=== PATIENT | female | born 1980 | race Two or more races ===

== ENCOUNTER 2024-01-29 06:55 | Day surgery (SDC) | payer OTHER, MEDICAID, SELFPAY ==
--- NOTE | 2024-01-24 10:21 | EKG_ITS ---
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
[2024-01-24 10:27] VITALS: BMI 33.1
[2024-01-24 10:55] LABS: Collection Type, Urine Clean Catch
[2024-01-24 11:59] LABS: Basophils # (Auto) 0.1 Thou/mm3 (0.0-0.2); Basophils % (Auto) 1 % (0-2.5); Eosinophils # (Auto) 0.2 Thou/mm3 (0.0-0.5); Eosinophils % (Auto) 3 % (0-10); Hematocrit 43.2 % (36.0-46.0); Hemoglobin 14.3 g/dL (12.0-16.0); Immature Granulocytes % (Auto) 0 % (0-0); Immature Granulocytes Auto 0.02 Thou/mm3 (0.00-0.00); Lymphocytes % (Auto) 34 % (10-50); Mean Corpuscular HGB Conc 33.1 g/dl (31.0-37.0); Mean Corpuscular Hemoglobin 31.4 pg (25.0-35.0); Mean Corpuscular Volume 95 fL (80-100); Monocytes # (Auto) 0.5 Thou/mm3 (0.0-0.8); Monocytes % (Auto) 5 % (0-12); Neutrophils # (Auto) 5.2 Thou/mm3 (1.8-7.7); Neutrophils % (Auto) 57 % (37-80); Nucleated Red Blood Cell % 0 /100 WBC (0); Platelet Count 247 Thou/mm3 (140-440); Red Blood Count 4.55 Miln/mm3 (4.00-5.20)
[2024-01-24 12:03] LABS: Bacteria,Urine Rare; Bilirubin,Urine Negative (Negative); Blood,Urine Negative (Negative); Clarity,Urine Clear (Clear/Hazy); Color,Urine Lt-Yellow (Lt Yel-Yel); Glucose, Urine Negative (Negative); Ketones,Urine Negative (Negative); Leukocyte Esterase,Urine Negative (Negative); Nitrite,Urine Negative (Negative); Protein,Urine Trace (Neg - Trace); RBC,Urine 2 /hpf (0-3); Specific Gravity,Urine 1.021 (1.001-1.035); Squamous Epithelial Cell,Urine 2 /hpf (0-5); Urobilinogen,Urine Negative mg/dL (0.0-1.0); WBC,Urine < 1 /hpf (0-5)
[2024-01-24 12:09] LABS: Alanine Aminotransferase 28 U/L (10-49); Albumin, Serum 4.8 gm/dL (3.5-5.0); Albumin/Globulin Ratio 1.5 (1.2-2.2); Alkaline Phosphatase 75 U/L (46-116); Anion Gap 7 (7-16); Aspartate Amino Transferase 18 U/L (0-34); BUN/Creatinine Ratio 20 Ratio (12-20); Bilirubin,Total 0.4 mg/dL (0.3-1.2); Blood Urea Nitrogen 14 mg/dL (9-23); Calcium 9.9 mg/dL (8.3-10.6); Calcium (Corrected) 9.9 mg/dL (8.5-10.1); Carbon Dioxide 30.4 mMol/L (20.0-31.0); Chloride 101 mMol/L (98-107); Creatinine (Component) 0.7 mg/dL (0.6-1.3); Estimated Creatinine Clearance 105.8 mL/min (>60); Globulin 3.1 gm/dL (2.3-3.5); Glucose 90 mg/dL (74-106); Osmolality,Calculated 276 (275-295); Partial Thromboplastin Time 29.8 Seconds (22.0-36.0); Potassium 3.7 mMol/L (3.4-5.1); Prothrombin Time 11.4 Seconds (9.0-12.2); Sodium 138 mMol/L (136-145); Total Protein 7.9 gm/dL (5.7-8.2); eGFR > 60 See Note
--- NOTE | 2024-01-28 09:20 | PD.SURHP ---
HPI Date of Admission January 29, 2024 Chief Complaint Chief Complaint: Refractory gastroesophageal reflux and hiatal hernia on BX. GERD PPI medications HPI This 43-year-old female has had gastroesophageal reflux for over 15 years. She has been taking PPI medications that have not been helping she has to sleep upright with multiple pillows she is waking up with acid in her mouth and a liquid in her mouth with coughing and this is a relatively frequent occurrence on daily basis. She was evaluated and selected for antireflux surgery. She will undergo laparoscopic hiatal hernia repair with implantation of a patch and 360 degree Misty fundoplication. Please obtain risk includes the bleeding possible explore laparotomy. Past Medical History Past Medical History NEUROLOGIC: Negative Neurological Disorders CARDIAC: Negative Cardiac Disorders or Congestive Heart Failure RESPIRATORY: Positive Respiratory Disorders and Asthma; Negative Chronic Obstructive Pulmonary Disease (COPD) GASTROINTESTINAL: Positive Gastrointestinal Disorders, Hiatal Hernia and Gastroesophageal Reflux Disease GENITOURINARY: Negative Genitourinary Disorders or Renal Disease REPRODUCTIVE: Positive Previous Pregnancies MUSCULOSKELETAL: Negative Musculoskeletal Disorders ENT: Negative History of ENT Problems ENDOCRINE: Negative Endocrine Disorders, Diabetes Mellitus Type 1 or Diabetes Mellitus Type 2 HEMATOLOGIC: Negative Blood Disorders PSYCHO/SOCIAL: Positive Depression and Anxiety OTHER HISTORY: Positive Hospitalization (surgery); Negative Autoimmune Disease, Shingles, Blood Transfusions, Anesthesia Reactions or Cancer Family History FAMILY HISTORY: Positive Family Respiratory Disorders and Family Cancer; Negative Family Psychiatric Problems, Family Cardiac Disorders, Family Gastrointestinal Problems, Family Genitourinary Problems, Family Endocrine Disorders, Family Reproductive Disorders, Family Musculoskeletal Disorders, Family Surgery or Family Anesthesia Reaction Surgical History SURGICAL: Positive Ear Surgery, Hysterectomy and Tubal Ligation Social History SMOKING STATUS: Never smoker Travel History EBOLA RISK: No Meds Home Medications and Allergies Home Medications ?Medication ?Instructions ?Recorded ?Confirmed ?Type azelastine 0.05 % eye drops 1 drp ophthalmic (eye) BID 01/24/24 01/24/24 History cetirizine 10 mg tablet (Zyrtec) 10 mg PO QDAY 01/24/24 01/24/24 History escitalopram oxalate 20 mg tablet 20 mg PO QDAY 01/24/24 01/24/24 History fluticasone fur. 100 mcg-umeclid 1 ea inhalation DAILY 01/24/24 01/24/24 History 62.5 mcg-vilant 25 mcg inhalat.powder (Trelegy Ellipta) fluticasone propionate 50 1 spray intranasal QDAY 01/24/24 01/24/24 History mcg/actuation nasal spray,suspension gabapentin 400 mg capsule 400 mg PO TID 01/24/24 01/24/24 History montelukast 10 mg tablet 10 mg PO QDAY 01/24/24 01/24/24 History ofloxacin 0.3 % eye drops 1 drp ophthalmic (eye) QID 01/24/24 01/24/24 History semaglutide (weight loss) 2.4 2.4 mg subcut QWEEK 01/24/24 01/24/24 History mg/0.75 mL subcutaneous pen injector (Wegovy) zolpidem 12.5 mg tablet,extended 12.5 mg PO HS 01/24/24 01/24/24 History release,multiphase Allergies Allergy/AdvReac Type Severity Reaction Status Date / Time No Known Allergies Allergy Verified 01/24/24 10:26 Exam Constitutional Constitutional: no acute distress Routine HEENT Exam Head: Present normocephalic Eye: Present EOMI and PERRL ENT: Present mucous membranes moist Routine Neck Exam Neck: Present supple and trachea midline Routine Chest/Breast/Axilla Exam Chest wall: Absent tenderness or mass Routine Respiratory Exam Respiratory: Present chest non-tender, lungs clear, normal breath sounds and no resp distress; Absent respiratory distress Routine Cardiovascular Exam Cardiovascular: Present RRR Routine Abdominal Exam Abdominal: Present soft and normoactive bowel sounds Routine Extremities Exam Extremities: Present full ROM Routine Skin Exam Skin: Present intact, dry and warm Routine Neurological Exam Neurological: Present alert, oriented X3 and CN II-XII intact Routine Psychiatric Exam Psychiatric: Present normal affect and normal thought process Results Results: Laboratory Laboratory results: results reviewed Assessment & Plan Problem List (1) Hiatal hernia with GERD and esophagitis: Status: Acute (2) GERD with esophagitis: Status: Acute Plan Laparoscopic hiatal hernia repair with implantation of a patch and. 60 degree Misty fundoplication. Risk benefits and alternatives were discussed with the patient informed consent is obtained. The risks include risk of bleeding and laparotomy. Quality Measures Quality Measures VTE prophylaxis
[2024-01-29] VITALS (17 sets, daily range): BP systolic 107–129; BP diastolic 72–91; PULSE 72–106; RESP 12–98; TEMP 36.2–36.8; O2SAT 95–100; BMI 32.8; BMI 34.9
[2024-01-29] MEDS: ALBUTEROL RT 2.5 MG/3 ML NEBU INH (11:49)
[2024-01-29] MEDS: RINGERS LACTATED 1000 ML 1,000 ML 60 ML IV (11:52)
--- NOTE | 2024-01-29 14:36 | ESOP_ITS ---
Date of Procedure 01/29/24 Pre Op Diagnosis Refractory gastroesophageal reflux not responding to PPI medications. Patient wants antireflux surgery Post Op Diagnosis Same. Procedure Laparoscopic hiatal hernia repair with implantation of phasic ST patch and 360 degree Misty fundoplication on January 29, 2024 Findings This patient has a history of abdominoplasty. Large hiatal hernia was found measuring about 5 cm in length. Esophagus and the stomach cardia and fundus resided in the posterior mediastinum. Procedure Description Patient was interviewed in the preop holding area and the procedure was discussed in detail. Risk benefits and alternatives were also discussed and informed consent is obtained. The patient was then brought to the operating room by the nursing staff. The patient was positioned in supine position on the operating table. Gen. anesthesia was administered in a satisfactory manner. The patient was positi oned in the modified lithotomy position in the [facility]. Patient was given prophylactic IV antibiotics half an hour before the procedure started. The Flowtron's are applied to both legs is anti-embolism mechanism. The chest abdomen and genitalia and the legs are prepped and draped in usual manner. An open laparoscopic procedure is carried out and balloon cannula is inserted through the supraumbilical incision. The balloon cannula was inserted. After that the pneumoperitoneum is achieved. The patient is positioned in the reverse Trendelenburg position. The 30? scope is used. Under direct vision a 5 mm cannula is inserted in the subxiphoid location, 10 mm cannula is inserted in the left midclavicular location, a 10 mm cannula is inserted in the left anterior axillary line and a 5 mm cannula is inserted in the right midclavicular line. A medium Genie retractor is used through the subxiphoid incision to retract the left lobe of the liver to the right side. The harmonic ultrasonic sly are used to divide the gastrohepatic omentum. The dissection is carried out towards the diaphragmatic hiatus and the esophago- phrenic gastrophrenic and gastrosplenic ligaments are divided with the harmonic ultrasonic sly. A retroesophageal window is created protecting the posterior vagus nerve and an umbilical tape is passed around the esophagus to be used as a retractor. Further dissection is carried out in the posterior mediastinum and the esophagus is further freed from the mediastinal structures and the esophagus is pulled down into the abdomen. The greater curvature of the stomach is examined and the short gastric vessels on the greater curvature were divided with harmonic ultrasonic sly. The gastrosplenic ligaments are divided in a similar manner and the gastropancreatic ligaments are divided. After the greater curvature and the fundus is freed completely the examination is carried out in the retroesophageal space and small ligaments are divided. The hemostasis is already achieved. The hiatal hernia defect is examined carefully and it is repaired by intra and extracorporeal technique with a 3-0 Ethibond interrupted sutures. The diaphragmatic repair is carried out posterior to the esophagus. Enough space his left around the esophagus to avoid obstruction. At this point phasic's ST bioabsorbable patch was used and tailored in place and placed in an onlay manner over the diaphragmatic repair and sutured in place. Multiple sutures were taken on both the side of the esophagus between the diaphragm and the patch and also patch was sutured over the diaphragmatic repair. Now the Misty 360? fundoplication is carried out. The orogastric tube is removed and a 56 Cymraes Puentes dilator is inserted into the esophagus and stomach by the anesthesiologist. This is used as an internal stent for calibration of the lumen. Now the freed fundus is brought around the esophagus from the left side behind the esophagus to the front on the right side and it is sutured to the left side of the fundus by intracorporeal and extracorporeal techniques using a 3-0 Ethibond interrupted sutures. There are 3 sutures placed to complete the fundoplication. The sutures passed through right and left side of the fundus as well as anterior wall of the esophagus. The Puentes dilator is removed. Multiple Lembert stitchs are taken between the right and left side of the fundus to the esophagus. The operative field is thoroughly irrigated with saline solution and the hemostasis is achieved. The umbilical tape is divided and it is removed. The Interceed an anti-adhesion barrier is placed between the liver and the stomach. The Genie retractor is removed under direct vision. All the cannulas are removed under laparoscopic vision and there is no bleeding from the cannula site incisions. The balloon cannula is removed and the pneumoperitoneum is allowed to escape. The midline incision is closed in layers. The fascia is approximated by 2-0 Vicryl continuous sutures. The subcutaneous tissue is approximated by 3-0 chromic suture and the skin is approximated by 4-0 nylon interrupted sutures. The trocar site incisions are closed with the 3-0 chromic and a 4-0 nylon stitches. Sterile dressings are applied. The patient tolerated the procedure very well and is transferred to the recovery room in satisfactory condition. Anesthesia GETA Drains None. Implants Phasic ST patch over the diaphragm Pathology / specimen None Estimated Blood Loss 10 Condition Stable Disposition PACU Surgeon Mahamed Santizo MD Surgical Staff Operation Date: 01/29/24 10:45 Case Staff Anesthesiologist: Josh Benoit RN First Assistant: Clara Morris RN director of digital technology Joanne surgical instrument repair specialist
--- NOTE | 2024-01-29 14:45 | SUR.PHASEI ---
pt received from OR in recovery bay 4. pt asleep but responds to voice, breathing unlabored on oxymask 8l, v/s stable. pt dressing to abd x5 cdi. report received from Dr. Benoit and David MÉNDEZ.
[2024-01-29] MEDS: fentaNYL CIT INJ 50 mCg/ML AMP 2ML 25 MCG IV (14:55)
--- NOTE | 2024-01-29 15:41 | SUR.PHASEII ---
pt able to tolerate oral fluids without difficulty swallowing or nausea/vomiting.
--- NOTE | 2024-01-29 16:45 | SUR.PHASEII ---
pt awake and alert, breathing unlabored on room air. v/s stable. pt dressing to abd x5 cdi. report called to Elena MÉNDEZ. pt will be transferred to room at this time.
[2024-01-29] MEDS: KETOROLAC INJ 30 MG/ML VIAL IVP ×2 (17:50→23:43)
[2024-01-29] MEDS: ACETAMINOPHEN IVPB 1,000 MG/100 ML VIAL 250 MG IV ×2 (17:51→23:44)
[2024-01-29] MEDS: FLUTICASONE UMECLIDIN VILANTER 1 EA INH (19:00)
[2024-01-29] MEDS: MONTELUKAST SODIUM 10 MG TABLET PO (20:12)
[2024-01-29] MEDS: lorataDINE 10 MG TABLET PO (20:12)
[2024-01-30] VITALS: BP 121/88; PULSE 83; RESP 18; TEMP 36.8; O2SAT 95
[2024-01-30 04:00] VITALS: BP 106/70; PULSE 75; RESP 17; TEMP 36.7; O2SAT 97
[2024-01-30] MEDS: KETOROLAC INJ 30 MG/ML VIAL IVP (06:01)
[2024-01-30] MEDS: ACETAMINOPHEN IVPB 1,000 MG/100 ML VIAL 250 MG IV (06:02)
[2024-01-30 07:55] VITALS: BP 124/86; PULSE 96; RESP 18; TEMP 36.2; O2SAT 99
[2024-01-30] MEDS: lorataDINE 10 MG TABLET PO (09:44)
[2024-01-30] MEDS: GABAPENTIN 100 MG, GABAPENTIN 300 MG 400 MG PO (09:44)
[2024-01-30] MEDS: ESCITALOPRAM OXALATE 10 MG TABLET 20 MG PO (09:44)
[2024-01-30 12:00] VITALS: BP 111/70; PULSE 76; RESP 19; TEMP 36.2; O2SAT 97
--- NOTE | 2024-01-30 12:09 | ESPR_ITS ---
Documentation for date of: 01/30/24 Subjective Subjective Brief History: This 43-year-old female has had gastroesophageal reflux for over 15 years. She has been taking PPI medications that have not been helping she has to sleep upright with multiple pillows she is waking up with acid in her mouth and a liquid in her mouth with coughing and this is a relatively frequent occurrence on daily basis. She was evaluated and selected for antireflux surger y. She will undergo laparoscopic hiatal hernia repair with implantation of a patch and 360 degree Misty fundoplication. Please obtain risk includes the bleeding possible explore laparotomy. January 30, 2024 postop day 1: Brooke has been requesting not to give her pain medication and she is doing well. She is up and about ambulating and has been walking in the hallways. She tolerated the full liquid diet without any difficulty and the urinary catheter was removed and she is passing urine. She has no complaints he wants to go home. She can tell she is not getting any reflux at this time. There is no complaint of shortness of breath and no recurrence of the asthma attack.. Exam Vital Signs Temp Pulse Resp BP Pulse Ox O2 Del Method O2 Flow Rate 97.1 F 96 18 124/86 H 99 Room Air 3 01/30/24 07:55 01/30/24 07:55 01/30/24 07:55 01/30/24 07:55 01/30/24 07:55 01/30/24 07:55 01/29/24 20:00 Narrative Exam Abdomen is soft and nontender incisional tenderness is present there is no drainage there is no infection extremities are unremarkable. Cardiopulmonary examination is normal. Assessment & Plan Diagnosis (1) Hiatal hernia with GERD and esophagitis: Status: Acute (2) GERD with esophagitis: Status: Acute (3) Status post laparoscopic fundoplication: Status: Acute Plan Discharge patient home on oral pain medication and liquid diet for a period of 10 days. Follow-up in 10 days Procedures Procedure Date 01/29/24 Procedures Laparoscopic hiatal hernia repair with implantation of phasic ST patch and 360 degree Misty fundoplication on January 29, 2024 (2) GERD with esophagitis Qualifiers: Esophagitis bleeding: without hemorrhage Qualified Code(s): K21.00 - Gastro- esophageal reflux disease with esophagitis, without bleeding
--- NOTE | 2024-01-30 12:31 | PD.SURDS ---
Planned Discharge Date 01/30/24 DS: Providers Provider Date of admission: 01/29/2024 Primary care physician: Hayden Reddy MD Attending Provider on Admission: Mahamed Santizo MD Attending Provider on DC: Mahamed Santizo MD Discharging Provider: Mahamed Santizo MD Diagnosis Discharge Diagnosis (1) Status post laparoscopic fundoplication: Status: Acute (2) Hiatal hernia with GERD and esophagitis: Status: Acute (3) GERD with esophagitis: Status: Acute (4) Post-op pain: Status: Acute Problem List Completed Was Problem List Reviewed/Reconciled?: Yes Hospital Course This patient was brought to OR for laparoscopic hiatal hernia repair and Misty fundoplication. This was done on 01/29/24. Postoperatively she needed IV narcotics for pain management. The judd catheter was removed and she was able to void. She got out of bed and ambulated in hallways on POD 1. She was started on clear liquid diet and advanced to full liquid diet. She tolerated that well. Her pain is managed with oral pain meds. She is discharged on liquid diet for 10 days and follow up in office in 10 days. Condition markedly improved. Status at Discharge Functional status at discharge: independent ambulation Exam Vital Signs Temp Pulse Resp BP Pulse Ox O2 Del Method O2 Flow Rate 97.2 F 76 19 111/70 97 Nasal Cannula 3 01/30/24 12:00 01/30/24 12:00 01/30/24 12:00 01/30/24 12:00 01/30/24 12:00 01/30/24 12:00 01/29/24 20:00 Narrative Exam Abdomen is soft and nontender and incisions are as expected. No cardio pulmonary issues and there is no leg tenderness. Discharge Plan Plan Patient Disposition: HOME (Self Care) Disposition Comment: Follow-up in the office in 10 days Prescriptions/Referrals Prescriptions/Med Rec: New hydrocodone-acetaminophen 10-325 mg tablet 1 tab PO Q6H MDD 4 PRN (Reason: pain) Qty: 28 0RF Continued azelastine 0.05 % Drops 1 drp OPHTHALMIC (EYE) BID cetirizine [Zyrtec] 10 mg Tablet 10 mg PO QDAY ofloxacin 0.3 % Drops 1 drp OPHTHALMIC (EYE) QID gabapentin 400 mg Capsule 400 mg PO TID montelukast 10 mg Tablet 10 mg PO QDAY fluticasone propionate 50 mcg/actuation [place],Suspension 1 spray INTRANASAL QDAY Rx Instructions: administer into each nostril escitalopram oxalate 20 mg Tablet 20 mg PO QDAY zolpidem 12.5 mg Tablet,Ext Release Multiphase 12.5 mg PO HS Trelegy Ellipta 100-62.5-25 mcg blister with device 1 ea INHALATION DAILY Wegovy 2.4 mg/0.75 mL pen injector 2.4 mg SUBCUT QWEEK Patient Comments: INJECT 2.4MG BY SUBCUTANEOUS ROUTE EVERY WEEK ON THE SAME DAY OF EACH WEEK Referrals: Hayden Reddy MD [Primary Care Provider] - Patient/Caregiver Discharge Instructions Other Discharge Activity Instructions:: Keep dressings dry may shower in 48 hrs. Other Discharge Diet Instructions: Full liquid diet for 10 days. Print Language: Citizen Of [place] Stand Alone Forms: [employer] Award Info., Patient Portal Info Letter Discharge Order Discharge Orders: Discharge (Routine); Ordered 01/30/24 Ordered By: Mahamed Santizo Procedures Procedure Date 01/29/24 Procedures Laparoscopic hiatal hernia repair with implantation of phasic ST patch and 360 degree Misty fundoplication on January 29, 2024 (3) GERD with esophagitis Qualifiers: Esophagitis bleeding: without hemorrhage Qualified Code(s): K21.00 - Gastro-esophageal reflux disease with esophagitis, without bleeding
--- NOTE | 2024-01-30 12:44 | PC.SS ---
SS met with patient regarding her d/c plan. Pt is alert/oriented. Pt was admitted for [place] Hi[place] [id number]. Pt confirmed demographic and contact information is correct on facesheet. Pt resides with and kids. Pt ambulates independently without assistance or DME. Pt is ok with all ADLs. Patient?s pharmacy of choice is [facility] in [place]. Pt named her , Renard Ashton medical decision maker if he is unable. Patient?s choice is to return home upon d/c. Pt states not diabetic and is not on dialysis. D/C plan: Return home Next of Kin: Renard Ashton, , phone# [phone] PCP: Dr. Sarahi Reddy from [facility] in [place] Address: [address]
--- NOTE | 2024-01-30 14:04 | CHAP ---
09:30 AM Visited by spiritual care volunteer Provided prayer for Patient.
== END 2024-01-30 15:41 | disposition home or self-care (01) ==
LOC: S2EX 07:01 → S3SX 01-30 06:06
PROVIDERS: PCP Internal Medicine Pulmonary Disease; Referring Provider Specialist; Visit Provider Specialist
PROC: 0DV44ZZ Restriction of Esophagogastric Junction, Percutaneous Endoscopic Approach (ICD-10-PCS; CPT 43280; principal; 2024-01-29 10:45)
DX: K44.9 Diaphragmatic hernia without obstruction or gangrene (principal); G89.18 Other acute postprocedural pain; K21.00 Gastro-esophageal reflux disease with esophagitis, without bleeding; J45.909 Unspecified asthma, uncomplicated; Z01.810 Encounter for preprocedural cardiovascular examination
CPT/HCPCS: 43282; 36415; 80053; 81001; 85025; 85610; 85730; 93005; 94640; 94664; A4217; A4649; C1765; C1781; J0131; J0694; J1100; J1885; J2250; J2371; J2405; J2704; J3010; J3490; J7120; A9270